=== PATIENT | male | born 1990 | race Caucasian/White ===

== ENCOUNTER 2021-02-26 11:51 | Emergency (ER) | payer SELFPAY ==
[~2021-02-26] VITALS: Ht 185.4 cm; Wt 127.3 kg
[~2021-02-26 11:51] MED LIST: CLIN150C8 PO; HYDR-4383 PO; LIDO20SO PO; TRAM50TA2 PO; no home meds
[2021-02-26] MEDS ORDERED: normal saline 1000ML IV soln IVB ONE (12:30)
[2021-02-26] MEDS ORDERED: ondansetron/PF 4mg/2ml inj IV ONE (12:30)
[2021-02-26 12:46] LABS: BASOPHILS % (AUTO) 0.2 % (0-1); EOSINOPHILS % (AUTO) 0.4 % (0-6); LYMPHOCYTES # (AUTO) 1.1 X10'3 (1.1-4.8); NEUTROPHILS # (AUTO) 4.2 X10'3 (1.8-7.7); NEUTROPHILS % (AUTO) 52.4 % (42-75); RED CELL DISTRIBUTION WIDTH 13.4 % (11.5-14.5); WHITE BLOOD COUNT 7.9 X10'3 (4.5-11.0)
[2021-02-26 12:47] LABS: HEMATOCRIT 58.3 % (42.0-52.0); LYMPHOCYTES % (AUTO) 13.7 % (21-51); MEAN CORPUSCULAR HEMOGLOBIN 29.3 PG (27.0-31.0); MEAN CORPUSCULAR HGB CONC 34.1 g/dL (33.0-36.5); MEAN CORPUSCULAR VOLUME 85.8 FL (78-98); MONOCYTES # (AUTO) 2.6 X10'3 (0-0.9); MONOCYTES % (AUTO) 33.3 % (2-12); PLATELET COUNT 236 X10'3 (140-440); RED BLOOD COUNT 6.79 X10'6 (4.70-6.10)
[2021-02-26 12:59] LABS: ALANINE AMINOTRANSFERASE 39 U/L (12-78); ALBUMIN 3.9 G/DL (3.4-5.0); ALBUMIN/GLOBULIN RATIO 0.8 (1.1-1.5); ALKALINE PHOSPHATASE 62 IU/L (46-116); ANION GAP 17 (8-16); ASPARTATE AMINO TRANSFERASE 29 U/L (10-37); BILIRUBIN,TOTAL 0.6 MG/DL (0.1-1.0); BLOOD UREA NITROGEN 26 MG/DL (7-18); BUN/CREATININE RATIO 18.6 (5.4-32.0); CALCIUM 9.5 MG/DL (8.5-10.1); CHLORIDE 97 MMOL/L (99-107); GLUCOSE 121 MG/DL (70-104); LIPASE < 50 U/L (73-393); POTASSIUM 3.9 MMOL/L (3.5-5.1); SODIUM 134 MMOL/L (135-145); TOTAL PROTEIN 9.1 G/DL (6.4-8.2); eGFR 59 ML/MIN
[2021-02-26 13:01] LABS: HEMOGLOBIN 19.9 g/dl (14.0-17.9)
[2021-02-26 13:06] LABS: TOTAL CELLS COUNTED 100
[2021-02-26 13:07] LABS: PLATELET ESTIMATE NORMAL
[2021-02-26 13:09] VITALS: BP 134/90
[2021-02-26 13:10] LABS: GIANT PLATELET FEW; LARGE PLATELETS FEW
[2021-02-26] MEDS ORDERED: ONDA4TAB6 PO (14:30)
== END 2021-02-26 14:38 | disposition home or self-care (01) ==
LOC: ER 11:51
DX: E86.0 Dehydration (principal); R11.2 Nausea with vomiting, unspecified; R19.7 Diarrhea, unspecified; Z90.89 Acquired absence of other organs; Z72.89 Other problems related to lifestyle; Z79.2 Long term (current) use of antibiotics; Z79.899 Other long term (current) drug therapy
CPT/HCPCS: 36415; 80053; 83690; 85007; 85025; 96361; 96374; 99284; J2405; J7030; 99283

== ENCOUNTER 2021-09-05 08:26 | Inpatient (IN) | payer MEDICAID ==
[~2021-09-05] VITALS: Ht 185.4 cm; Wt 122.7 kg
[~2021-09-05 08:26] MED LIST changes: +ONDA4TAB6 PO
[2021-09-05 10:19] LABS: BASOPHILS % (AUTO) 0.1 % (0-1); EOSINOPHILS # (AUTO) 0.1 X10'3 (0-0.9); EOSINOPHILS % (AUTO) 0.8 % (0-6); HEMATOCRIT 44.8 % (42.0-52.0); HEMOGLOBIN 15.1 g/dl (14.0-17.9); LYMPHOCYTES # (AUTO) 0.7 X10'3 (1.1-4.8); LYMPHOCYTES % (AUTO) 6.5 % (21-51); MEAN CORPUSCULAR HEMOGLOBIN 28.3 PG (27.0-31.0); MEAN CORPUSCULAR HGB CONC 33.7 g/dL (33.0-36.5); MEAN CORPUSCULAR VOLUME 84.1 FL (78-98); MONOCYTES % (AUTO) 8.4 % (2-12); NEUTROPHILS # (AUTO) 9.5 X10'3 (1.8-7.7); NEUTROPHILS % (AUTO) 84.2 % (42-75); PLATELET COUNT 218 X10'3 (140-440); RED BLOOD COUNT 5.32 X10'6 (4.70-6.10); RED CELL DISTRIBUTION WIDTH 13.3 % (11.5-14.5); WHITE BLOOD COUNT 11.3 X10'3 (4.5-11.0)
[2021-09-05 10:34] LABS: ALANINE AMINOTRANSFERASE 226 U/L (12-78); ALBUMIN 3.7 G/DL (3.4-5.0); ALKALINE PHOSPHATASE 72 IU/L (46-116); ANION GAP 9 (8-16); ASPARTATE AMINO TRANSFERASE 194 U/L (10-37); BILIRUBIN,TOTAL 3.8 MG/DL (0.1-1.0); BLOOD UREA NITROGEN 13 MG/DL (7-18); BUN/CREATININE RATIO 12.6 (5.4-32.0); CALCIUM 8.9 MG/DL (8.5-10.1); CHLORIDE 102 MMOL/L (99-107); CREATININE 1.03 MG/DL (0.60-1.10); GLUCOSE 115 MG/DL (70-104); LIPASE 72 U/L (73-393); POTASSIUM 3.6 MMOL/L (3.5-5.1); SODIUM 138 MMOL/L (135-145); TOTAL CARBON DIOXIDE 27.5 MMOL/L (24-32); TOTAL PROTEIN 7.4 G/DL (6.4-8.2); eGFR 84 ML/MIN
[2021-09-05] MEDS ORDERED: normal saline 1000ML IV soln IVB ONE ×2 (11:05→11:10)
[2021-09-05 11:18] LABS: CLARITY,URINE SLIGHTLY CLOUDY (Clear)
[2021-09-05 11:20] LABS: COLOR,URINE AMBER (Yellow); UA COLLECTION TYPE CLN CATCH MIDSTREAM
[2021-09-05 11:25] LABS: URINE AMPHETAMINE SCREEN POSITIVE (Neg); URINE BARBITUATE SCREEN NEGATIVE (Neg); URINE BENZODIAZEPINES SCREEN NEGATIVE (Neg); URINE CANNABINOID SCREEN NEGATIVE (Neg); URINE COCAINE SCREEN NEGATIVE (Neg); URINE METHADONE SCREEN NEGATIVE (Neg); URINE OPIATE SCREEN POSITIVE (Neg); URINE PHENCYCLIDINE SCREEN NEGATIVE (Neg)
[2021-09-05 11:27] LABS: BACTERIA,URINE FEW /HPF (Neg); MUCUS STRANDS MODERATE /LPF (Neg); RBC,URINE NONE SEEN /HPF (0-2); SQUAMOUS EPITHELIAL CELL,UR FEW /LPF (FEW)
[2021-09-05 12:15] LABS: CREATINE KINASE 290 U/L (39-308); ETHANOL < 0.010 GM/DL (0.0-0.010); MAGNESIUM 2.2 MG/DL (1.5-2.4)
[2021-09-05] MEDS ORDERED: piperacillin/tazo 3.375gm/50ml 50 ML IV ONE (13:15)
[2021-09-05] MEDS ORDERED: NO HOME MEDS (13:42)
[2021-09-05] MEDS ORDERED: acetaminophen 325mg tablet PO PRN (14:10)
[2021-09-05] MEDS ORDERED: magnesium hydroxide 30ml (MOM) UD suspension PO PRN (14:10)
[2021-09-05] MEDS ORDERED: magnesium 4gm in 100ml NS 100 ML IV PRN (14:10)
[2021-09-05] MEDS ORDERED: ondansetron 4mg rapidly disintigrating tab PO PRN (14:10)
[2021-09-05] MEDS ORDERED: POTASSIUM BICARB 20meq eff tab 20 MEQ TABLET.EFF PO PRN (14:10)
[2021-09-05] MEDS ORDERED: bisacodyl 10mg suppository rectal RC PRN (14:10)
[2021-09-05] MEDS ORDERED: diphenhydrAMINE 25mg capsule PO PRN (14:10)
[2021-09-05] MEDS ORDERED: diphenhydrAMINE 50 mg/ml inj IV PRN (14:10)
[2021-09-05] MEDS ORDERED: ondansetron/PF 4mg/2ml inj IV PRN (14:10)
[2021-09-05] MEDS ORDERED: HYDROmorphone/PF 0.2 MG/ML SYRINGE IV PRN (14:10)
[2021-09-05] MEDS ORDERED: HYDROcodone/acetaminophen 5mg/325mg tablet PO PRN (14:10)
[2021-09-05] MEDS ORDERED: magnesium Cl slow-release 64mg tablet PO PRN (14:10)
[2021-09-05] MEDS ORDERED: magnesium 2GM in 50ml NS 50 ML IV PRN (14:10)
[2021-09-05] MEDS ORDERED: LORazepam 0.5 MG tablet PO PRN (14:10)
[2021-09-05] MEDS ORDERED: mag hydrox/Alum hydrox/simeth 30ml oral suspension PO PRN (14:10)
[2021-09-05] MEDS ORDERED: metoclopramide 5 mg/ml inj IV PRN (14:10)
[2021-09-05] MEDS ORDERED: acetaminophen 650mg rectal suppository RC PRN (14:10)
[2021-09-05] MEDS ORDERED: potassium CL 10mEq/100ml bag 100 ML IV PRN (14:10)
[2021-09-05] MEDS: normal saline 1000ml 1,000 ML IV SCH ×2 (14:35→20:59)
[2021-09-05 14:48] LABS: POTASSIUM 3.7 MMOL/L (3.5-5.1)
[2021-09-05 14:52] LABS: APTT 25 SECONDS (22-32)
[2021-09-05 17:00] VITALS: BP 127/86
[2021-09-05] MEDS ORDERED: iohexol 300mg/ml 100ml inj. ONE (17:16)
--- NOTE | 2021-09-05 18:30 | NUR ---
Patient in room ORTHO 4024. I have received report from Derek SAWANT and had the opportunity to ask questions and assume patient care.
[2021-09-05] MEDS ORDERED: heparin, porcine 5000 units/ml vial SQ SCH (20:00)
[2021-09-05] MEDS: K and/or MAG REPLACEMENT MC SCH (20:00)
[2021-09-05] MEDS ORDERED: temazepam 15mg capsule PO PRN (21:00)
[2021-09-05] MEDS: pantoprazole 40MG/NS 100ML BAG 100 ML IV SCH (21:04)
[2021-09-05] MEDS: docusate sod 100mg capsule PO SCH (21:07)
[2021-09-05 22:00] VITALS: BP 130/92
--- NOTE | 2021-09-05 22:45 | NUR ---
A visitor came by to picker feeder her phone from patient and I told her I would get it for her since there is no visiting hours after 6:30 pm and she told me it was in the bed with him. I woke him up and he said yes it was her phone and it was ok for me to give to her. He wanted to go down stairs with her and I told him he was not allowed to leave the floor since he has an iv in place. He also had been resting when I first went in and I had to wake him up to verify who's phone it was. He appeared to go back to sleep without difficulty.
[2021-09-06] MEDS: pantoprazole 40MG/NS 100ML BAG 100 ML IV SCH ×2 (01:02→05:39)
[2021-09-06] MEDS: normal saline 1000ml 1,000 ML IV SCH ×2 (05:40→16:31)
[2021-09-06 06:00] VITALS: BP 138/63
[2021-09-06 06:11] LABS: BASOPHILS % (AUTO) 0.3 % (0-1); EOSINOPHILS # (AUTO) 0.2 X10'3 (0-0.9); HEMATOCRIT 42.9 % (42.0-52.0); HEMOGLOBIN 14.2 g/dl (14.0-17.9); LYMPHOCYTES # (AUTO) 1.4 X10'3 (1.1-4.8); MONOCYTES # (AUTO) 0.9 X10'3 (0-0.9); PLATELET COUNT 186 X10'3 (140-440); RED CELL DISTRIBUTION WIDTH 13.6 % (11.5-14.5)
[2021-09-06 06:13] LABS: EOSINOPHILS % (AUTO) 2.9 % (0-6); LYMPHOCYTES % (AUTO) 20.6 % (21-51); MEAN CORPUSCULAR HEMOGLOBIN 28.3 PG (27.0-31.0); MEAN CORPUSCULAR VOLUME 85.9 FL (78-98); MEAN PLATELET VOLUME 10.2 FL (7.4-10.4); MONOCYTES % (AUTO) 14.3 % (2-12); NEUTROPHILS # (AUTO) 4.1 X10'3 (1.8-7.7); NEUTROPHILS % (AUTO) 61.9 % (42-75); WHITE BLOOD COUNT 6.6 X10'3 (4.5-11.0)
--- NOTE | 2021-09-06 06:32 | NUR ---
Problems reprioritized. Patient report given, questions answered & plan of care reviewed with Ashok Collins.
[2021-09-06 06:37] LABS: ALANINE AMINOTRANSFERASE 313 U/L (12-78); ALBUMIN/GLOBULIN RATIO 0.9 (1.1-1.5); ALKALINE PHOSPHATASE 81 IU/L (46-116); ANION GAP 6 (8-16); ASPARTATE AMINO TRANSFERASE 197 U/L (10-37); BILIRUBIN,TOTAL 5.9 MG/DL (0.1-1.0); BLOOD UREA NITROGEN 7 MG/DL (7-18); CALCIUM 8.3 MG/DL (8.5-10.1); CHLORIDE 107 MMOL/L (99-107); CHOL/HDL RATIO 2.8 (0.00-4.99); CHOLESTEROL 79 MG/DL (0-200); GLUCOSE 89 MG/DL (70-104); HDL CHOLESTEROL 28 MG/DL (35-60); LDL CHOLESTEROL 41 MG/DL (50-100); MAGNESIUM 2.1 MG/DL (1.5-2.4); POTASSIUM 3.4 MMOL/L (3.5-5.1); SODIUM 141 MMOL/L (135-145); TOTAL CARBON DIOXIDE 27.6 MMOL/L (24-32); TOTAL PROTEIN 6.3 G/DL (6.4-8.2); TRIGLYCERIDES 57 MG/DL (20-135); eGFR 87 ML/MIN
[2021-09-06] MEDS: docusate sod 100mg capsule PO SCH ×2 (08:00→20:00)
[2021-09-06] MEDS: K and/or MAG REPLACEMENT MC SCH ×2 (08:00→20:00)
--- NOTE | 2021-09-06 10:30 | NUR ---
Pt not found in rm. Notified security who found pt in the basement and escorted pt back to rm. Pt stated he just wanted to go outside to smoke and was looking for a place to do that. Pt teary eyed and reluctant/stressed about the possibility of surgery. Informed pt of not allowed to leave unit and not allowed to go outside to smoke/smoking policy at the hospital. Pt verbalized understanding and not wanting to sign out AMA at this time. Also informed pt that needs to stay on unit for MD and/or surgeon to make rounds and eval pt.
[2021-09-06] MEDS: POTASSIUM BICARB 20meq eff tab 20 MEQ TABLET.EFF PO PRN ×2 (12:57→17:14)
[2021-09-06] MEDS: nicotine 14mg patch - 24hr TD SCH (12:57)
[2021-09-06 14:00] VITALS: BP 135/88
[2021-09-06] MEDS: HYDROmorphone inj. 0.5 MG/0.5 ML DISP.SYRIN IV PRN ×2 (17:46→22:32)
[2021-09-06 22:00] VITALS: BP 138/91
--- NOTE | 2021-09-07 03:45 | NUR ---
Pt awoke from sleep startled and anxiuos. He states that he had a nightmare and cannot calm down. Reassurance given, ativan tab given as well.
--- NOTE | 2021-09-07 05:00 | NUR ---
Pt resting in bed, sleeping soundly.
[2021-09-07 05:35] LABS: BASOPHILS % (AUTO) 0.4 % (0-1); EOSINOPHILS # (AUTO) 0.2 X10'3 (0-0.9); EOSINOPHILS % (AUTO) 4.4 % (0-6); HEMATOCRIT 41.7 % (42.0-52.0); HEMOGLOBIN 13.7 g/dl (14.0-17.9); LYMPHOCYTES # (AUTO) 1.8 X10'3 (1.1-4.8); LYMPHOCYTES % (AUTO) 32.1 % (21-51); MEAN CORPUSCULAR HEMOGLOBIN 28.2 PG (27.0-31.0); MEAN CORPUSCULAR HGB CONC 32.9 g/dL (33.0-36.5); MEAN CORPUSCULAR VOLUME 85.7 FL (78-98); MEAN PLATELET VOLUME 10.4 FL (7.4-10.4); MONOCYTES # (AUTO) 0.7 X10'3 (0-0.9); MONOCYTES % (AUTO) 12.7 % (2-12); NEUTROPHILS # (AUTO) 2.8 X10'3 (1.8-7.7); NEUTROPHILS % (AUTO) 50.4 % (42-75); PLATELET COUNT 185 X10'3 (140-440); RED BLOOD COUNT 4.87 X10'6 (4.70-6.10); RED CELL DISTRIBUTION WIDTH 13.3 % (11.5-14.5); WHITE BLOOD COUNT 5.5 X10'3 (4.5-11.0)
[2021-09-07 05:56] LABS: ALANINE AMINOTRANSFERASE 295 U/L (12-78); ALBUMIN/GLOBULIN RATIO 0.9 (1.1-1.5); ALKALINE PHOSPHATASE 100 IU/L (46-116); ANION GAP 8 (8-16); ASPARTATE AMINO TRANSFERASE 149 U/L (10-37); BILIRUBIN,TOTAL 2.5 MG/DL (0.1-1.0); BLOOD UREA NITROGEN 6 MG/DL (7-18); BUN/CREATININE RATIO 6.3 (5.4-32.0); CALCIUM 8.3 MG/DL (8.5-10.1); CHLORIDE 107 MMOL/L (99-107); CREATININE 0.95 MG/DL (0.60-1.10); GLUCOSE 78 MG/DL (70-104); MAGNESIUM 1.7 MG/DL (1.5-2.4); POTASSIUM 3.7 MMOL/L (3.5-5.1); SODIUM 140 MMOL/L (135-145); TOTAL CARBON DIOXIDE 25.3 MMOL/L (24-32); TOTAL PROTEIN 6.3 G/DL (6.4-8.2); eGFR > 90 ML/MIN
[2021-09-07 06:00] VITALS: BP 135/79
[2021-09-07] MEDS ORDERED: pantoprazole 40mg Tablet.DR PO SCH (07:30)
[2021-09-07] MEDS: K and/or MAG REPLACEMENT MC SCH (08:00)
[2021-09-07] MEDS: docusate sod 100mg capsule PO SCH (08:16)
[2021-09-07] MEDS: nicotine 14mg patch - 24hr TD SCH (08:20)
[2021-09-07] MEDS: normal saline 1000ml 1,000 ML IV SCH (08:44)
--- NOTE | 2021-09-07 14:34 | NUR ---
Problems reprioritized. Patient report given, questions answered & plan of care reviewed with
--- NOTE | 2021-09-07 14:37 | NUR ---
RECEIVED REPORT FROM JESE GARDNER
--- NOTE | 2021-09-07 15:11 | NUR ---
pt left ama
[2021-09-09 07:38] LABS: HBSAG SCREEN Negative (Negative); HEP A AB, IGM Negative (Negative)
== END 2021-09-07 15:00 | disposition left against medical advice (07) ==
LOC: ER 08:26 → ED HOLD 14:12 → ORTHO 4S 17:55
PROVIDERS: ADMIT Family Medicine; ATTEND Family Medicine
PROC: BW211ZZ Computerized Tomography (CT Scan) of Abdomen and Pelvis using Low Osmolar Contrast (ICD-10-PCS; principal; 2021-09-05)
DX: B17.9 Acute viral hepatitis, unspecified (principal); K76.0 Fatty (change of) liver, not elsewhere classified; E87.6 Hypokalemia; K80.20 Calculus of gallbladder without cholecystitis without obstruction; F15.10 Other stimulant abuse, uncomplicated; Z53.29 Procedure and treatment not carried out because of patient's decision for other reasons; K82.8 Other specified diseases of gallbladder; Z90.49 Acquired absence of other specified parts of digestive tract; Z71.51 Drug abuse counseling and surveillance of drug abuser; Z72.0 Tobacco use; Z71.6 Tobacco abuse counseling
CPT/HCPCS: 36415; 74177; 74181; 76700; 80053; 80061; 80074; 80305; 80320; 81001; 82550; 83605; 83690; 83735; 84132; 84145; 85025; 85610; 85730; 86677; 87040; 87081; 87088; 99285; C9113; G0378; J1170; J2543; J3480; J7030; Q9967

== ENCOUNTER 2021-09-08 04:36 | Inpatient (IN) | payer MEDICAID ==
[~2021-09-08] VITALS: Ht 185.4 cm; Wt 122.7 kg
[~2021-09-08 04:36] MED LIST changes: -CLIN150C8 PO; -HYDR-4383 PO; -LIDO20SO PO; +NO HOME MEDS; -ONDA4TAB6 PO; -TRAM50TA2 PO; -no home meds
[2021-09-08 07:52] LABS: EOSINOPHILS # (AUTO) 0.1 X10'3 (0-0.9); PLATELET COUNT 222 X10'3 (140-440); RED BLOOD COUNT 5.33 X10'6 (4.70-6.10)
[2021-09-08 07:54] LABS: BASOPHILS % (AUTO) 0.3 % (0-1); EOSINOPHILS % (AUTO) 1.8 % (0-6); HEMATOCRIT 45.9 % (42.0-52.0); HEMOGLOBIN 15.4 g/dl (14.0-17.9); LYMPHOCYTES # (AUTO) 1.2 X10'3 (1.1-4.8); LYMPHOCYTES % (AUTO) 17.4 % (21-51); MEAN CORPUSCULAR HEMOGLOBIN 28.9 PG (27.0-31.0); MEAN CORPUSCULAR HGB CONC 33.6 g/dL (33.0-36.5); MEAN PLATELET VOLUME 10.3 FL (7.4-10.4); MONOCYTES # (AUTO) 0.8 X10'3 (0-0.9); MONOCYTES % (AUTO) 11.4 % (2-12); NEUTROPHILS # (AUTO) 4.6 X10'3 (1.8-7.7); NEUTROPHILS % (AUTO) 69.1 % (42-75); RED CELL DISTRIBUTION WIDTH 13.8 % (11.5-14.5); WHITE BLOOD COUNT 6.6 X10'3 (4.5-11.0)
[2021-09-08] MEDS ORDERED: iohexol 300mg/ml 100ml inj. ONE (08:00)
[2021-09-08] MEDS ORDERED: ketorolac trometh. 30mg/ml inj. IV ONE (08:05)
[2021-09-08] MEDS ORDERED: morphine 4 MG/ML inj SYRINge IV ONE (08:05)
[2021-09-08 08:13] LABS: ALANINE AMINOTRANSFERASE 521 U/L (12-78); ALBUMIN 3.6 G/DL (3.4-5.0); ALBUMIN/GLOBULIN RATIO 0.9 (1.1-1.5); ALKALINE PHOSPHATASE 149 IU/L (46-116); ANION GAP 8 (8-16); ASPARTATE AMINO TRANSFERASE 397 U/L (10-37); BLOOD UREA NITROGEN 9 MG/DL (7-18); BUN/CREATININE RATIO 8.3 (5.4-32.0); CHLORIDE 105 MMOL/L (99-107); CREATININE 1.09 MG/DL (0.60-1.10); GLUCOSE 113 MG/DL (70-104); LIPASE 239 U/L (73-393); SODIUM 141 MMOL/L (135-145); TOTAL CARBON DIOXIDE 27.9 MMOL/L (24-32); TOTAL PROTEIN 7.6 G/DL (6.4-8.2); eGFR 78 ML/MIN
[2021-09-08 08:26] LABS: POTASSIUM 3.8 MMOL/L (3.5-5.1)
--- NOTE | 2021-09-08 09:00 | NUR ---
Pt states pain is improved. Pt to CT. Sitting up on side of bed, not pale any more, not dizzy.
[2021-09-08 09:04] LABS: CLARITY,URINE SLIGHTLY CLOUDY (Clear); COLOR,URINE YELLOW (Yellow); GLUCOSE, URINE NEGATIVE (Neg); KETONES,URINE NEGATIVE (Neg); LEUKOCYTE ESTERASE ,URINE NEGATIVE (Neg); NITRITES, URINE NEGATIVE (Neg); OCCULT BLOOD,URINE NEGATIVE (Neg); PH,URINE 6.5 (4.8-8.0); PROTEIN,URINE NEGATIVE (Neg); UROBILINOGEN,URINE >=8.0 E.U/dL (0.2-1.0)
[2021-09-08 09:07] LABS: UA COLLECTION TYPE NON-SPECIFIED
[2021-09-08 09:13] LABS: BACTERIA,URINE FEW /HPF (Neg); MUCUS STRANDS FEW /LPF (Neg); RBC,URINE 0-2 /HPF (0-2); SPERM FEW /HPF (NEGATIVE); SQUAMOUS EPITHELIAL CELL,UR FEW /LPF (FEW); WBC,URINE 0-4 /HPF (0-4)
--- NOTE | 2021-09-08 11:33 | NUR ---
Met with patient in regards to substance use and to see if patient was interested in treatment options. Patient would like to go to inpatient rehab. I gave patient [facility] number to get process started and gave him my card to call me with any questions.
[2021-09-08] MEDS ORDERED: metoclopramide 5 mg/ml inj IV PRN (11:40)
[2021-09-08] MEDS ORDERED: ondansetron/PF 4mg/2ml inj IV PRN (11:40)
[2021-09-08] MEDS ORDERED: acetaminophen 325mg tablet PO PRN ×2 (11:40)
[2021-09-08] MEDS ORDERED: HYDROcodone/acetaminophen 5mg/325mg tablet PO PRN (11:40)
[2021-09-08] MEDS ORDERED: morphine 2 MG/ML inj. syringe IV PRN (11:40)
[2021-09-08] MEDS ORDERED: HYDROcodone/acetaminophen 10/325mg tab PO PRN (11:40)
[2021-09-08] MEDS ORDERED: magnesium hydroxide 30ml (MOM) UD suspension PO PRN (11:40)
[2021-09-08] MEDS ORDERED: mag hydrox/Alum hydrox/simeth 30ml oral suspension PO PRN (11:40)
[2021-09-08] MEDS: dextrose 5%-1/2 normal saline 1,000 ML IV SCH ×2 (12:43→22:07)
--- NOTE | 2021-09-08 13:00 | NUR ---
Pt to [facility] scan.
[2021-09-08] MEDS ORDERED: SINCALIDE IV ONE (13:55)
[2021-09-08] MEDS ORDERED: NORMAL SALINE IV ONE (13:55)
[2021-09-08] MEDS ORDERED: LORazepam 2 mg/ml vial IV ONE (14:10)
--- NOTE | 2021-09-08 14:15 | NUR ---
Nuc med called and stated pt was anxious. Asked MD for order for medication to calm him.
--- NOTE | 2021-09-08 15:00 | NUR ---
Pt back from scan.
[2021-09-08] MEDS: piperacillin/tazo 4.5gm/100ml 100 ML IV SCH ×2 (16:20→23:51)
[2021-09-08 18:30] VITALS: BP 133/84
[2021-09-08] MEDS: docusate sod 100mg capsule PO SCH (20:00)
[2021-09-08 22:00] VITALS: BP 140/83
--- NOTE | 2021-09-08 22:36 | NUR ---
I attempted to swab pt for MRSA but he refused.
[2021-09-09 02:00] VITALS: BP 119/75
[2021-09-09] MEDS: morphine 2 MG/ML inj. syringe IV PRN ×2 (05:22→21:13)
[2021-09-09 06:00] VITALS: BP 126/88
--- NOTE | 2021-09-09 06:26 | NUR ---
Problems reprioritized. Patient report given, questions answered & plan of care reviewed with MELVIN. Addendum: 09/09/21 at 0626 by El Gleason RN Amended: Links added.
[2021-09-09 06:27] LABS: BASOPHILS % (AUTO) 0.5 % (0-1); EOSINOPHILS # (AUTO) 0.2 X10'3 (0-0.9); EOSINOPHILS % (AUTO) 3.8 % (0-6); HEMATOCRIT 43.7 % (42.0-52.0); HEMOGLOBIN 14.6 g/dl (14.0-17.9); LYMPHOCYTES # (AUTO) 1.2 X10'3 (1.1-4.8); LYMPHOCYTES % (AUTO) 28.5 % (21-51); MEAN CORPUSCULAR HEMOGLOBIN 28.7 PG (27.0-31.0); MEAN CORPUSCULAR HGB CONC 33.3 g/dL (33.0-36.5); MEAN CORPUSCULAR VOLUME 86.2 FL (78-98); MEAN PLATELET VOLUME 10.4 FL (7.4-10.4); MONOCYTES # (AUTO) 0.4 X10'3 (0-0.9); MONOCYTES % (AUTO) 9.4 % (2-12); NEUTROPHILS # (AUTO) 2.4 X10'3 (1.8-7.7); NEUTROPHILS % (AUTO) 57.8 % (42-75); PLATELET COUNT 204 X10'3 (140-440); RED BLOOD COUNT 5.07 X10'6 (4.70-6.10); RED CELL DISTRIBUTION WIDTH 13.4 % (11.5-14.5); WHITE BLOOD COUNT 4.1 X10'3 (4.5-11.0)
[2021-09-09 06:42] LABS: ALANINE AMINOTRANSFERASE 724 U/L (12-78); ALBUMIN 3.1 G/DL (3.4-5.0); ALBUMIN/GLOBULIN RATIO 0.9 (1.1-1.5); ALKALINE PHOSPHATASE 133 IU/L (46-116); ANION GAP 9 (8-16); ASPARTATE AMINO TRANSFERASE 352 U/L (10-37); BLOOD UREA NITROGEN 8 MG/DL (7-18); BUN/CREATININE RATIO 7.3 (5.4-32.0); CALCIUM 8.6 MG/DL (8.5-10.1); CHLORIDE 106 MMOL/L (99-107); CREATININE 1.09 MG/DL (0.60-1.10); GLUCOSE 94 MG/DL (70-104); SODIUM 141 MMOL/L (135-145); TOTAL CARBON DIOXIDE 26.4 MMOL/L (24-32); TOTAL PROTEIN 6.5 G/DL (6.4-8.2); eGFR 78 ML/MIN
--- NOTE | 2021-09-09 06:53 | NUR ---
Patient in room ORTHO 4011B. I have received report from JESE ROJAS and had the opportunity to ask questions and assume patient care.
[2021-09-09] MEDS: dextrose 5%-1/2 normal saline 1,000 ML IV SCH ×2 (07:40→16:51)
[2021-09-09] MEDS: docusate sod 100mg capsule PO SCH ×2 (08:28→20:00)
[2021-09-09] MEDS: piperacillin/tazo 4.5gm/100ml 100 ML IV SCH ×2 (08:34→16:50)
[2021-09-09 10:00] VITALS: BP 121/74
[2021-09-09] MEDS: nicotine 14mg patch - 24hr TD SCH (16:51)
--- NOTE | 2021-09-09 19:45 | NUR ---
Problems reprioritized. Patient report given, questions answered & plan of care reviewed with JESE HOWELL.
[2021-09-09 22:00] VITALS: BP 113/71
[2021-09-10] MEDS: piperacillin/tazo 4.5gm/100ml 100 ML IV SCH ×3 (05:28→22:12)
[2021-09-10] MEDS: dextrose 5%-1/2 normal saline 1,000 ML IV SCH ×2 (05:29→15:12)
[2021-09-10] MEDS: morphine 2 MG/ML inj. syringe IV PRN ×2 (05:40→22:12)
[2021-09-10 06:00] VITALS: BP 126/66
[2021-09-10 06:27] LABS: BASOPHILS % (AUTO) 0.5 % (0-1); EOSINOPHILS # (AUTO) 0.2 X10'3 (0-0.9); EOSINOPHILS % (AUTO) 4.5 % (0-6); HEMATOCRIT 42.7 % (42.0-52.0); HEMOGLOBIN 14.2 g/dl (14.0-17.9); LYMPHOCYTES # (AUTO) 1.6 X10'3 (1.1-4.8); LYMPHOCYTES % (AUTO) 39.9 % (21-51); MEAN CORPUSCULAR HEMOGLOBIN 28.3 PG (27.0-31.0); MEAN CORPUSCULAR HGB CONC 33.2 g/dL (33.0-36.5); MEAN CORPUSCULAR VOLUME 85.2 FL (78-98); MEAN PLATELET VOLUME 10.4 FL (7.4-10.4); MONOCYTES # (AUTO) 0.4 X10'3 (0-0.9); MONOCYTES % (AUTO) 9.5 % (2-12); NEUTROPHILS # (AUTO) 1.8 X10'3 (1.8-7.7); NEUTROPHILS % (AUTO) 45.6 % (42-75); PLATELET COUNT 211 X10'3 (140-440); RED BLOOD COUNT 5.01 X10'6 (4.70-6.10); RED CELL DISTRIBUTION WIDTH 13.8 % (11.5-14.5); WHITE BLOOD COUNT 3.9 X10'3 (4.5-11.0)
[2021-09-10 06:42] LABS: ALANINE AMINOTRANSFERASE 584 U/L (12-78); ALBUMIN 3.2 G/DL (3.4-5.0); ALBUMIN/GLOBULIN RATIO 0.9 (1.1-1.5); ALKALINE PHOSPHATASE 116 IU/L (46-116); ANION GAP 6 (8-16); ASPARTATE AMINO TRANSFERASE 195 U/L (10-37); BILIRUBIN,TOTAL 1.2 MG/DL (0.1-1.0); BLOOD UREA NITROGEN 5 MG/DL (7-18); BUN/CREATININE RATIO 4.9 (5.4-32.0); CALCIUM 8.8 MG/DL (8.5-10.1); CHLORIDE 108 MMOL/L (99-107); CREATININE 1.02 MG/DL (0.60-1.10); GLUCOSE 101 MG/DL (70-104); POTASSIUM 3.6 MMOL/L (3.5-5.1); SODIUM 142 MMOL/L (135-145); TOTAL CARBON DIOXIDE 28.4 MMOL/L (24-32); TOTAL PROTEIN 6.6 G/DL (6.4-8.2); eGFR 85 ML/MIN
--- NOTE | 2021-09-10 06:54 | NUR ---
Patient in room ORTHO 4011. I have received report from valeriy polanco and had the opportunity to ask questions and assume patient care.
[2021-09-10] MEDS: docusate sod 100mg capsule PO SCH ×2 (07:28→20:00)
[2021-09-10] MEDS: nicotine 14mg patch - 24hr TD SCH (07:30)
[2021-09-10 10:00] VITALS: BP 113/74
[2021-09-10 18:00] VITALS: BP 130/78
--- NOTE | 2021-09-10 18:06 | NUR ---
Problems reprioritized. Patient report given, questions answered & plan of care reviewed with DANTE SAWANT.
[2021-09-10 22:00] VITALS: BP 116/71
[2021-09-11] VITALS (21 sets, daily range): BP systolic 108–138; BP diastolic 64–90
[2021-09-11] MEDS: dextrose 5%-1/2 normal saline 1,000 ML IV SCH ×2 (02:26→11:58)
[2021-09-11] MEDS: morphine 2 MG/ML inj. syringe IV PRN (02:27)
[2021-09-11] MEDS: piperacillin/tazo 4.5gm/100ml 100 ML IV SCH ×2 (03:58→12:54)
--- NOTE | 2021-09-11 06:05 | NUR ---
Patient in room ORTHO 4011. I have received report from DANTE SAWANT and had the opportunity to ask questions and assume patient care.
[2021-09-11] MEDS: docusate sod 100mg capsule PO SCH ×2 (07:03→19:10)
[2021-09-11] MEDS: nicotine 14mg patch - 24hr TD SCH (07:23)
[2021-09-11 07:43] LABS: BASOPHILS % (AUTO) 0.6 % (0-1); EOSINOPHILS # (AUTO) 0.2 X10'3 (0-0.9); EOSINOPHILS % (AUTO) 3.4 % (0-6); HEMATOCRIT 45.5 % (42.0-52.0); HEMOGLOBIN 14.6 g/dl (14.0-17.9); LYMPHOCYTES # (AUTO) 2.2 X10'3 (1.1-4.8); MEAN CORPUSCULAR HEMOGLOBIN 28.1 PG (27.0-31.0); MEAN CORPUSCULAR VOLUME 87.7 FL (78-98); MEAN PLATELET VOLUME 10.3 FL (7.4-10.4); MONOCYTES # (AUTO) 0.6 X10'3 (0-0.9); MONOCYTES % (AUTO) 10.8 % (2-12); NEUTROPHILS # (AUTO) 2.5 X10'3 (1.8-7.7); NEUTROPHILS % (AUTO) 45.2 % (42-75); PLATELET COUNT 210 X10'3 (140-440); RED BLOOD COUNT 5.19 X10'6 (4.70-6.10); RED CELL DISTRIBUTION WIDTH 14.1 % (11.5-14.5); WHITE BLOOD COUNT 5.4 X10'3 (4.5-11.0)
[2021-09-11 08:05] LABS: ALANINE AMINOTRANSFERASE 456 U/L (12-78); ALBUMIN 3.1 G/DL (3.4-5.0); ALBUMIN/GLOBULIN RATIO 0.9 (1.1-1.5); ALKALINE PHOSPHATASE 97 IU/L (46-116); ANION GAP 8 (8-16); ASPARTATE AMINO TRANSFERASE 125 U/L (10-37); BILIRUBIN,TOTAL 0.8 MG/DL (0.1-1.0); BLOOD UREA NITROGEN 8 MG/DL (7-18); BUN/CREATININE RATIO 7.6 (5.4-32.0); CALCIUM 8.3 MG/DL (8.5-10.1); CHLORIDE 107 MMOL/L (99-107); CREATININE 1.05 MG/DL (0.60-1.10); GLUCOSE 99 MG/DL (70-104); SODIUM 140 MMOL/L (135-145); TOTAL CARBON DIOXIDE 25.2 MMOL/L (24-32); TOTAL PROTEIN 6.6 G/DL (6.4-8.2); eGFR 82 ML/MIN
[2021-09-11 08:06] LABS: APTT 25 SECONDS (22-32); PRE OP PROTIME 10.2 SECONDS (9.0-12.0)
[2021-09-11] MEDS ORDERED: INDOCYANINE GREEN 25 MG/10 ML VIAL IV ONE (12:25)
[2021-09-11] MEDS ORDERED: BUPIVAcaine 0.5% inj/PF 30 ML ONE (13:11)
[2021-09-11] MEDS ORDERED: LIDOcaine 1% 30ml preserv. free vial ONE (13:12)
[2021-09-11] MEDS ORDERED: BUPIVAcaine 0.5% inj/PF 30 ml vial IJ ONE (13:18)
--- NOTE | 2021-09-11 13:33 | NUR ---
CALLED REPORT TO YULIA IN [facility].
[2021-09-11] MEDS ORDERED: ringers solution, lacted 1,000 ML IV SCH (13:50)
[2021-09-11] MEDS ORDERED: proCHLORperazine 10 MG/2 ml inj IV PRN (13:50)
[2021-09-11] MEDS ORDERED: meperidine/PF 25mg/ml syringe IV PRN ×2 (13:50)
[2021-09-11] MEDS ORDERED: ondansetron/PF 4mg/2ml inj IV PRN (13:50)
[2021-09-11] MEDS ORDERED: morphine 4 MG/ML inj SYRINge IV PRN (13:50)
[2021-09-11] MEDS ORDERED: morphine 2 MG/ML inj. syringe IV PRN (13:50)
--- NOTE | 2021-09-11 13:54 | NUR ---
FROM OR ON BED. DR. KRISHNAN AT SIDE. VSS, IV PATENT, SKIN MCINTOSH, NO CO PAIN AT THIS TIME. FOUR LARGE BANDAIDS TO ABD ALL CDI. VERBAL ORDER FROM DR. KRISHNAN TO RUN THE REST OF THE BAG IN, APPROXIMATELY 400CCS.
[2021-09-11] MEDS ORDERED: midazolam 1 mg/ML 2ml injection ONE (13:55)
[2021-09-11] MEDS ORDERED: fentaNYL/PF 50MCG/1 ML 2ML syringe ONE ×2 (13:55→14:22)
[2021-09-11] MEDS ORDERED: LIDOcaine 2% (20mg/ml) 5ml vial ONE (14:05)
[2021-09-11] MEDS ORDERED: propofol inj 20 ML IV ONE (14:05)
[2021-09-11] MEDS ORDERED: rocuronium 10mg/ml inj IV ONE (14:05)
[2021-09-11] MEDS ORDERED: HYDROcodone/acetaminophen 5mg/325mg tablet PO PRN (15:00)
[2021-09-11] MEDS ORDERED: HYDROcodone/acetaminophen 10/325mg tab PO PRN (15:00)
[2021-09-11] MEDS ORDERED: naloxone 0.4 mg/ml inj IV PRN (15:00)
[2021-09-11] MEDS ORDERED: dexamethasone sod phosphate 4mg/ml inj. ONE (15:06)
[2021-09-11] MEDS ORDERED: ketorolac trometh. 30mg/ml inj. ONE (15:06)
[2021-09-11] MEDS ORDERED: ondansetron/PF 4mg/2ml inj ONE (15:06)
[2021-09-11] MEDS ORDERED: glycopyrrolate 0.2mg/ml inj ONE (15:06)
[2021-09-11] MEDS ORDERED: neostigmine methylsulfate 1 MG/ML 10ml vial ONE (15:06)
[2021-09-11] MEDS: meperidine/PF 25mg/ml syringe IV PRN ×2 (15:22→15:41)
--- NOTE | 2021-09-11 15:24 | NUR ---
DOING VERY WELL. ABD DSGS CONTINUE WITH FOUR DSGS CDI. VSS, MED FOR PAIN WITH DEMEROL WITH EXCELLENT RESULTS. O2 OFF.
--- NOTE | 2021-09-11 15:49 | NUR ---
PTS DIASTOLIC WENT TO [address]. [address] KRISHNAN. NO FURTHER ORDER RECEIVED.
--- NOTE | 2021-09-11 16:02 | NUR ---
ATTEMPTED TO GIVE REPORT.NURSE WILL CALL BACK.
--- NOTE | 2021-09-11 16:07 | NUR ---
REPORT CALLED TO NURSE COVERING FOR PTS NURSE. PT READIED FOR TRANSPORT.
--- NOTE | 2021-09-11 16:07 | NUR ---
Patient in room ORTHO 4006. I have received report from Doris SAWANT from recovery and had the opportunity to ask questions and assume patient care.
--- NOTE | 2021-09-11 16:29 | NUR ---
TRANSPORTED TO FLOOR AFTER REPORT PHONED. VSS, IV PATENT, NO RESP DISTRESS, PT VERY HAPPY. HAS BIBLE IN HAND THAT HE BROUGHT WITH HIM. ABD DRESSING STILL CDI.
--- NOTE | 2021-09-11 18:19 | NUR ---
VAPE FOUND IN PTS BELONGINGS, PT STATED THAT IT WAS HIS GIRLFRIENDS. VAPE WAS PLACED AT NURSES STATION MED ROOM.
--- NOTE | 2021-09-11 18:37 | NUR ---
Patient in room ORTHO 4006. I have received report from JESE Cano and had the opportunity to ask questions and assume patient care.
--- NOTE | 2021-09-11 18:44 | NUR ---
PT UNHOOKED HIMSELF FROM POST OP VITALS. MACHINE DID NOT RECORD HISTORY OF VITALS, UNSURE AT WHAT POINT PT UNHOOKED VITALS. PT WALKING HALLWAY, UPSET ABOUT NOT GETTING REG FOOD.
--- NOTE | 2021-09-11 18:47 | NUR ---
Problems reprioritized. Patient report given, questions answered & plan of care reviewed with JARRED SAWANT.
--- NOTE | 2021-09-11 20:45 | NUR ---
Pt. had orders to DC if wanted. He's been ambulating. States pain is controlled. Orders received to DC. IV removed, canula intact. Pt taken to lobby in wheelchair at 2100.
== END 2021-09-11 21:20 | disposition home or self-care (01) | DRG 263 ==
LOC: ER 04:37 → ED HOLD 11:40 → ORTHO 4S 17:30
PROVIDERS: ADMIT Internal Medicine; ATTEND Internal Medicine
PROC: BW211ZZ Computerized Tomography (CT Scan) of Abdomen and Pelvis using Low Osmolar Contrast (ICD-10-PCS; 2021-09-08)
PROC: CF1C1ZZ Planar Nuclear Medicine Imaging of Hepatobiliary System, All using Technetium 99m (Tc-99m) (ICD-10-PCS; 2021-09-08)
PROC: 8E0W4CZ Robotic Assisted Procedure of Trunk Region, Percutaneous Endoscopic Approach (ICD-10-PCS; 2021-09-11)
PROC: BF121ZZ Fluoroscopy of Gallbladder using Low Osmolar Contrast (ICD-10-PCS; 2021-09-11)
PROC: 0FT44ZZ Resection of Gallbladder, Percutaneous Endoscopic Approach (ICD-10-PCS; principal; 2021-09-11 13:54)
DX: K80.12 Calculus of gallbladder with acute and chronic cholecystitis without obstruction (principal); F15.10 Other stimulant abuse, uncomplicated; Z20.822 Contact with and (suspected) exposure to COVID-19; F17.210 Nicotine dependence, cigarettes, uncomplicated; Z79.899 Other long term (current) drug therapy
CPT/HCPCS: 36415; 74177; 78226; 80053; 81001; 82948; 83690; 85025; 85610; 85730; 87635; 99285; A4215; A4618; A7000; A9537; G0378; J1100; J1885; J2060; J2175; J2250; J2270; J2405; J2543; J2704; J2710; J3010; J3490; J7042; J7120; Q9967; S0020

== ENCOUNTER 2022-01-14 13:58 | Emergency (ER) | payer MEDICAID ==
[~2022-01-14] VITALS: Ht 185.4 cm; Wt 127.3 kg
[2022-01-14 15:01] VITALS: BP 142/95
[2022-01-14 15:51] LABS: BASOPHILS % (AUTO) 0.5 % (0-1); EOSINOPHILS # (AUTO) 0.1 X10'3 (0-0.9); EOSINOPHILS % (AUTO) 1.6 % (0-6); HEMATOCRIT 49.7 % (42.0-52.0); HEMOGLOBIN 16.9 g/dl (14.0-17.9); LYMPHOCYTES # (AUTO) 2.4 X10'3 (1.1-4.8); LYMPHOCYTES % (AUTO) 33.2 % (21-51); MEAN CORPUSCULAR HEMOGLOBIN 29.6 PG (27.0-31.0); MEAN CORPUSCULAR HGB CONC 33.9 g/dL (33.0-36.5); MEAN CORPUSCULAR VOLUME 87.2 FL (78-98); MEAN PLATELET VOLUME 10.3 FL (7.4-10.4); MONOCYTES # (AUTO) 0.8 X10'3 (0-0.9); MONOCYTES % (AUTO) 10.3 % (2-12); NEUTROPHILS % (AUTO) 54.4 % (42-75); PLATELET COUNT 187 X10'3 (140-440); RED CELL DISTRIBUTION WIDTH 13.6 % (11.5-14.5); WHITE BLOOD COUNT 7.3 X10'3 (4.5-11.0)
[2022-01-14 16:03] LABS: ANION GAP 7 (8-16); BILIRUBIN,TOTAL 0.3 MG/DL (0.1-1.0); BLOOD UREA NITROGEN 14 MG/DL (7-18); BUN/CREATININE RATIO 14.6 (5.4-32.0); CALCIUM 9.1 MG/DL (8.5-10.1); CHLORIDE 102 MMOL/L (99-107); CREATININE 0.96 MG/DL (0.60-1.10); GLUCOSE 92 MG/DL (70-104); POTASSIUM 4.3 MMOL/L (3.5-5.1); SODIUM 137 MMOL/L (135-145); TOTAL CARBON DIOXIDE 27.6 MMOL/L (24-32); eGFR > 90 ML/MIN
[2022-01-14 16:04] LABS: ALANINE AMINOTRANSFERASE 36 U/L (12-78); ALBUMIN 4.2 G/DL (3.4-5.0); ALBUMIN/GLOBULIN RATIO 1.1 (1.1-1.5); ALKALINE PHOSPHATASE 65 IU/L (46-116); ASPARTATE AMINO TRANSFERASE 16 U/L (10-37); LIPASE 105 U/L (73-393); TOTAL PROTEIN 8.2 G/DL (6.4-8.2)
== END 2022-01-14 17:54 | disposition left against medical advice (07) ==
LOC: ER 13:59
DX: R11.10 Vomiting, unspecified (principal); Z53.21 Procedure and treatment not carried out due to patient leaving prior to being seen by health care provider
CPT/HCPCS: 36415; 80053; 83690; 85025

== ENCOUNTER 2022-04-16 11:13 | Emergency (ER) | payer MEDICAID ==
[~2022-04-16] VITALS: Ht 185.4 cm; Wt 131.8 kg
[2022-04-16 11:18] VITALS: BP 149/88
== END 2022-04-16 15:46 | disposition left against medical advice (07) ==
LOC: ER 11:14
DX: K04.7 Periapical abscess without sinus (principal); Z53.21 Procedure and treatment not carried out due to patient leaving prior to being seen by health care provider

== ENCOUNTER 2023-08-17 20:45 | Emergency (ER) | payer MEDICAID ==
[~2023-08-17] VITALS: Ht 185.4 cm; Wt 137.0 kg
[2023-08-17 20:51] VITALS: BP 159/71; PULSE 98; RESP 16; TEMP 98.2; O2SAT 99
[2023-08-17] MEDS: amox tr/potassium clavulanate 875/125mg TAB PO ONE (21:49)
[2023-08-17] MEDS: TETanus/Pertussis (Acell)/Diphther VAC/PF (Tdap-Adult) 0.5ml syringe IMVAC ONE (21:51)
[2023-08-17] MEDS ORDERED: AMOX-117 PO (22:27)
== END 2023-08-17 22:33 | disposition home or self-care (01) ==
LOC: ER 20:46
DX: S91.052A Open bite, left ankle, initial encounter (principal); S91.051A Open bite, right ankle, initial encounter; Z98.890 Other specified postprocedural states; W54.0XXA Bitten by dog, initial encounter; Y93.89 Activity, other specified; Y92.89 Other specified places as the place of occurrence of the external cause; Y99.8 Other external cause status
CPT/HCPCS: 90471; 90715; 99283; J7030; A6253; A6446; A6449